=== PATIENT | male | born 1955 | race Caucasian/White ===

== ENCOUNTER 2020-09-21 00:10 | Emergency (ER) | payer MEDICARE, OTHER ==
--- NOTE | 2020-09-21 00:54 | EDM.PDOC ---
ED HPI GENERAL MEDICAL PROBLEM - General Chief Complaint: Upper Extremity Injury/Pain Stated Complaint: RIGHT SHOULDER INJURY Time Seen by Provider: 09/21/20 00:39 Source of Information: Reports: Patient History Limitations: Reports: No Limitations - History of Present Illness INITIAL COMMENTS - FREE TEXT/NARRATIVE: Dave is a 65-year-old male from [place], [place] who presents to the ED for evaluation of right shoulder and clavicle pain after [place]. The patient suffered an injury to his right shoulder and has deformity at the distal clavicle. He is premedicated for pain with a sufficient amount of beer and wine, as well as 1 Advil. Denies any numbness or tingling. He does have pain with raising his right arm above his head but otherwise can move the shoulder without difficulty. He denies any other injuries. Right Shoulder Pain Score (Numeric/FACES): 1 - Related Data Allergies Allergy/AdvReac Type Severity Reaction Status Date / Time No Known Allergies Allergy Verified 09/21/20 00:29 Home Meds: Home Meds Aspirin 1 tab PO DAILY 09/21/20 [History] Loratadine [Claritin] 10 mg PO DAILY 09/21/20 [History] Past Medical History HEENT History: Reports: Hard of Hearing, Impaired Vision Cardiovascular History: Reports: Other (See Below) Other Cardiovascular History: heart ablation x 2 - Past Surgical History Musculoskeletal Surgical History: Reports: Hip Replacement Social & Family History - Tobacco Use Tobacco Use Status *Q: Current Every Day Tobacco User Years of Tobacco use: 40 Packs/Tins Daily: 0 - Caffeine Use Caffeine Use: Reports: Coffee - Alcohol Use Date of Last Drink: 09/20/20 Time of Last Drink: 23:00 - Recreational Drug Use Recreational Drug Use: No Review of Systems - Review of Systems Review Of Systems: See Below Constitutional: Reports: No Symptoms Respiratory: Reports: No Symptoms Cardiovascular: Reports: No Symptoms Musculoskeletal: Reports: Shoulder Pain (Right shoulder and clavicle pain) Skin: Reports: No Symptoms Neurological: Reports: No Symptoms ED EXAM, GENERAL - Physical Exam Exam: See Below Exam Limited By: No Limitations General Appearance: Alert, No Apparent Distress Extremities: Joint Swelling (There is significant swelling but no tenderness over the distal clavicle on the right. There is no tenderness to palpation of the right shoulder or humerus. There is no obvious deformity to the clavicle, however, there may be some elevation of the clavicle in association with the acromium worrisom), Limited Range of Motion (Pain with movement of the right arm above the head.) Neurological: Alert, Oriented, Normal Cognition, No Motor/Sensory Deficits Course - Vital Signs Last Recorded V/S: Last Vital Signs Temp 36.2 C 09/21/20 00:27 Pulse 61 09/21/20 00:27 Resp 16 09/21/20 00:27 BP 148/78 H 09/21/20 00:27 Pulse Ox 100 09/21/20 00:27 - Orders/Labs/Meds Orders: Active Orders 24 hr Category Date Time Status Clavicle Rt [CR] Stat Exams 09/21/20 00:39 Taken - Radiology Interpretation Free Text/Narrative:: I reviewed the x-rays of the right clavicle showing a acromioclavicular separation type III. - Re-Assessments/Exams Free Text/Narrative Re-Assessment/Exam: 09/21/20 01:22 patient has evidence on exam and on x-ray of an acromioclavicular separation type III. We will put him in a simple sling. He is vacationing up here until Monday (6 days from now) and then will be returning to [place]. I recommend that he follow-up with an orthopedic surgeon once he returns home. We will provide him with the imaging disc so he may able to take that to his appointment. In the meantime we will have him limit his use of the right upper extremity. I have provided him with a small amount of hydrocodone for significant pain. He may use ibuprofen intermittently as well. I recommended against activity raising the arm above the level of the head. Indications to return to ED were discussed and he was discharged in satisfactory condition. Departure - Departure Time of Disposition: 01:15 Disposition: Home, Self-Care 01 Clinical Impression: Separation of right acromioclavicular joint, type 3 Qualifiers: Encounter type: initial encounter Qualified Code(s): S43.101A - Unspecified dislocation of right acromioclavicular joint, initial encounter - Discharge Information Instructions: Acromioclavicular Separation Referrals: PCP,None [Primary Care Provider] - Forms: ED Department Discharge Care Plan Goals: Your evaluation today including the x-rays show that you have an acromioclavicular separation type III which leaves your right shoulder in a relatively unstable condition. For this reason we will put the arm in a sling to support it. You will want to limit activity with the arm especially with movement of the arm above the level of horizontal or over the head. I recommend that when you return back to [place] that you arrange to follow-up with an orthopedic surgeon who can review the images and follow your care. In some instances surgery may be required. We will put you on hydrocodone 5/325 mg 1 tablet every 4-6 hours as needed for pain. I am prescribing you 18 tablets. I would recommend that you use them sparingly and you can also use ibuprofen in between for less severe pain. You may continue activity as tolerated with the exception of raising the arm above the head. I have provided you with a disc with the images that you may take to the appointment with your orthopedic surgeon. I hope that you are able to relax and [place] If you should develop any numbness, tingling, or weakness in the arm please return to the emergency room for reevaluation. Sepsis Event Note (ED) - Evaluation Sepsis Screening Result: No Definite Risk - Focused Exam Vital Signs: Vital Signs Temp Pulse Resp BP Pulse Ox 09/21/20 00:27 36.2 C 61 16 148/78 H 100 - Problem List & Annotations (1) Separation of right acromioclavicular joint, type 3 SNOMED Code(s): 012836459 Code(s): S43.101A - UNSP DISLOCATION OF RIGHT ACROMIOCLAVICULAR JOINT, INIT Status: Acute Priority: Medium Current Visit: Yes Qualifiers: Encounter type: initial encounter Qualified Code(s): S43.101A - Unspecified dislocation of right acromioclavicular joint, initial encounter - Problem List Review Problem List Initiated/Reviewed/Updated: Yes - My Orders Last 24 Hours: My Active Orders 09/21/20 00:39 Clavicle Rt [CR] Stat - Assessment/Plan Last 24 Hours: My Active Orders 09/21/20 00:39 Clavicle Rt [CR] Stat
--- NOTE | 2020-09-21 10:51 | CR ---
Clavicle Rt CLINICAL HISTORY: Pain, deformity FINDINGS: There is moderate separation at the AC joint. There is tiny ossific densities in the joint space likely related to some avulsion. IMPRESSION: Moderate AC separation
== END 2020-09-21 01:34 | disposition home or self-care (01) ==
LOC: JP.ED 00:10
DX: S43.101A Unspecified dislocation of right acromioclavicular joint, initial encounter (principal); Z79.82 Long term (current) use of aspirin; Z72.0 Tobacco use; W01.0XXA Fall on same level from slipping, tripping and stumbling without subsequent striking against object, initial encounter
CPT/HCPCS: 73000-26-RT; 73000-RT; 99283-25